=== PATIENT | female | born 1965 | race Caucasian/White ===

== ENCOUNTER 2018-12-18 13:53 | Emergency (ER) | payer MEDICAID, OTHER ==
[~2018-12-18] VITALS: Ht 160 cm; Wt 94.3 kg
[~2018-12-18 13:53] MED LIST: SERT25TA
[2018-12-18 13:56] VITALS: BP_SYST 122
--- NOTE | 2018-12-18 14:57 | NUR ---
Patient to ER bed 08 to gown for evaluation. Side rails up.
[2018-12-18] MEDS ORDERED: MORPHINE 4 MG/ML INJ. SYRINGE IVP ONE (15:15)
[2018-12-18] MEDS ORDERED: ONDANSETRON HCL 4 MG/2 ML VIAL IVP ONE (15:15)
--- NOTE | 2018-12-18 15:40 | NUR ---
Pt brought by self,A&O x4, pt presents to ER with severe headache for the last couple weeks, pt skin pink and warm, pt is ambulatory, no N/V noted at this time, will continue to monitor.
--- NOTE | 2018-12-18 15:43 | NUR ---
[facility] at bedside examining patient
--- NOTE | 2018-12-18 16:20 | NUR ---
Pt resting at this time, VSS , respirations even and unlabored, cap refill <3.
[2018-12-18] MEDS ORDERED: FIORCET PO ONE (16:45)
--- NOTE | 2018-12-18 17:08 | NUR ---
Pt resting at this time, states pain is improving , VSS
[2018-12-18 18:48] VITALS: BP_SYST 122
--- NOTE | 2018-12-18 18:51 | NUR ---
Patient given written and verbal discharge instructions and verbalizes understanding. ER MD discussed with patient the results and treatment provided. Patient in stable condition. ID arm band removed. IV catheter removed intact and dressing applied, no active bleeding. Rx of Fiorinal, Zofran given. Patient educated on pain management and to follow up with PMD. Pain Scale 0/10 . Opportunity for questions provided and answered. Medication side effect fact sheet provided.
== END 2018-12-18 18:48 | disposition home or self-care (01) ==
LOC: SED 13:53
DX: G43.909 Migraine, unspecified, not intractable, without status migrainosus (principal); M79.7 Fibromyalgia; J45.909 Unspecified asthma, uncomplicated
CPT/HCPCS: 96374; 96375; 99283; J2270; J2405

== ENCOUNTER 2018-12-21 11:47 | Emergency (ER) | payer OTHER ==
[~2018-12-21] VITALS: Ht 162.6 cm; Wt 93.4 kg
--- NOTE | 2018-12-21 11:50 | NUR ---
Patient triaged and placed in waiting room. VSS and patient appears in no acute distress at this time. Accompanied by SON, awaiting available bed, and MD notified of need for MSE.
[2018-12-21 11:56] VITALS: BP_SYST 135
--- NOTE | 2018-12-21 13:04 | NUR ---
BROUGHT BACK TO BED #2 AND REPORT GIVEN TO JOELLE
--- NOTE | 2018-12-21 13:12 | NUR ---
Patient presented to ER with severe Headache. Patient [id number], ambulatory to ER, nausea, dizziness, emesis x1. Patient states she was seen in [facility] ER Monday for headache x19 days & was given prescription. Today headache pain more severe 10/10 pain with dizziness and emesis.
--- NOTE | 2018-12-21 13:20 | NUR ---
ER at bedside examining patient.
--- NOTE | 2018-12-21 13:26 | NUR ---
Note undone in EDM - 12/21/18 at 1532 by PARRISEDMARY ANNE Patient given written and verbal discharge instructions and verbalizes understanding. ER discussed with patient the results and treatment provided. Patient in stable condition. ID arm band removed. IV catheter removed intact and dressing applied, no active bleeding. No Rx given. Patient educated on pain management and to follow up with PMD. Pain Scale 2/10 tolerable for patient. Opportunity for questions provided and answered. Patient left with out paperwork.
[2018-12-21] MEDS ORDERED: KETOROLAC TROMETHAMINE 30 MG VIAL IVP ONE (13:30)
[2018-12-21] MEDS ORDERED: METOCLOPRAMIDE HCL 10 MG/2 ML VIAL IVP ONE (13:30)
[2018-12-21] MEDS ORDERED: NACL 0.9% 1,000 ML IV ONE (13:30)
[2018-12-21] MEDS ORDERED: KETOROLAC TROMETHAMINE 60 MG/2 ML VIAL IM ONE (13:30)
--- NOTE | 2018-12-21 13:39 | NUR ---
CONSENT SIGNED AND FAXED TO [facility] FOR CT REPORT.
[2018-12-21 13:44] LABS: BASOPHILS # (AUTO) 0.1 K/uL (0.0-0.2); BASOPHILS % (AUTO) 0.7 % (0.0-2.0); EOSINOPHILS # (AUTO) 0.2 K/uL (0.0-0.4); EOSINOPHILS % (AUTO) 1.8 % (0.0-4.0); HEMATOCRIT 37.1 % (36-48); HEMOGLOBIN 12.4 g/dL (12.0-16.0); LYMPHOCYTES # (AUTO) 2.1 K/uL (1.0-5.5); LYMPHOCYTES % (AUTO) 19.3 % (20.5-51.5); MEAN CORPUSCULAR HEMOGLOBIN 30 pg (27-31); MEAN CORPUSCULAR HGB CONC 33 % (32-36); MEAN CORPUSCULAR VOLUME 90 fL (79.0-98.0); MONOCYTES # (AUTO) 0.6 K/uL (0.0-1.0); MONOCYTES % (AUTO) 5.5 % (1.7-9.3); NEUTROPHILS # (AUTO) 7.9 K/uL (1.8-7.7); NEUTROPHILS % (AUTO) 72.7 % (40.0-70.0); PLATELET COUNT (AUTO) 390 K/uL (130-430); RED BLOOD CELL COUNT(AUTO) 4.11 MIL/uL (4.2-6.2); WHITE BLOOD COUNT (AUTO) 10.9 K/uL (4.8-10.8)
[2018-12-21 13:55] LABS: CALCIUM 8.7 mg/dL (8.4-11.0); CREATININE 0.92 mg/dL (0.55-1.30); POTASSIUM 3.5 mmol/L (3.5-5.1)
[2018-12-21 13:58] LABS: ALBUMIN 3.3 g/dL (3.4-4.8); C-REACTIVE PROTEIN QUANT 3.6 mg/dL (0-0.5); TOTAL BILIRUBIN 0.4 mg/dL (0.0-1.0)
[2018-12-21 14:25] LABS: ERYTHROCYTE SEDIMENTATION RATE 34 MM/HR (0-20)
[2018-12-21] MEDS ORDERED: METOCLOPRAMIDE HCL 10 MG/2 ML VIAL ONE (14:46)
[2018-12-21 15:26] VITALS: BP_SYST 135
--- NOTE | 2018-12-21 15:26 | NUR ---
Patient given written and verbal discharge instructions and verbalizes understanding. ER MD discussed with patient the results and treatment provided. Patient in stable condition. ID arm band removed. IV catheter removed intact and dressing applied, no active bleeding. No Rx given. Patient educated on pain management and to follow up with PMD. Pain Scale 2/10 tolerable for patient. Opportunity for questions provided and answered. Patient left with out paperwork.
== END 2018-12-21 15:26 | disposition home or self-care (01) ==
LOC: SED 11:47
DX: R51 Headache (principal); J45.909 Unspecified asthma, uncomplicated
CPT/HCPCS: 36415; 80053; 81025; 85025; 85651; 86140; 96361; 96374; 96375; 99283; J1885; J2765; J7030

== ENCOUNTER 2019-01-11 16:54 | Emergency (ER) | payer OTHER ==
[~2019-01-11] VITALS: Ht 162.6 cm; Wt 91.2 kg
[2019-01-11 17:01] VITALS: BP_SYST 123
--- NOTE | 2019-01-11 17:07 | NUR ---
Patient to ER bed 7 to gown for evaluation. Side rails up.
--- NOTE | 2019-01-11 17:15 | NUR ---
Pt arrives with c/o BLE edema x 3 days. Pt also reports mild SOB with epigastric pain 4/10. No other c/o at the moment.
--- NOTE | 2019-01-11 17:35 | NUR ---
ER at bedside examining patient.
--- NOTE | 2019-01-11 17:40 | NUR ---
Pt is having a CXR done at the bedside.
--- NOTE | 2019-01-11 18:10 | NUR ---
pt is resting comfortably no c/o at the moment.
[2019-01-11 18:12] LABS: BASOPHILS # (AUTO) 0.1 K/uL (0.0-0.2); BASOPHILS % (AUTO) 1.2 % (0.0-2.0); EOSINOPHILS # (AUTO) 0.3 K/uL (0.0-0.4); EOSINOPHILS % (AUTO) 3.3 % (0.0-4.0); HEMATOCRIT 35.3 % (36-48); HEMOGLOBIN 11.8 g/dL (12.0-16.0); LYMPHOCYTES # (AUTO) 2.5 K/uL (1.0-5.5); LYMPHOCYTES % (AUTO) 27.2 % (20.5-51.5); MEAN CORPUSCULAR HEMOGLOBIN 30 pg (27-31); MEAN CORPUSCULAR HGB CONC 34 % (32-36); MEAN CORPUSCULAR VOLUME 90 fL (79.0-98.0); MONOCYTES # (AUTO) 0.6 K/uL (0.0-1.0); MONOCYTES % (AUTO) 6.8 % (1.7-9.3); NEUTROPHILS # (AUTO) 5.6 K/uL (1.8-7.7); NEUTROPHILS % (AUTO) 61.5 % (40.0-70.0); PLATELET COUNT (AUTO) 381 K/uL (130-430); RED BLOOD CELL COUNT(AUTO) 3.91 MIL/uL (4.2-6.2); RED CELL DISTRIBUTION WIDTH 14.2 % (9.0-15.0); WHITE BLOOD COUNT (AUTO) 9.1 K/uL (4.8-10.8)
[2019-01-11 18:17] LABS: CALCIUM 8.7 mg/dL (8.4-11.0); CREATININE 0.74 mg/dL (0.55-1.30); POTASSIUM 3.7 mmol/L (3.5-5.1)
[2019-01-11 18:22] LABS: ALBUMIN 3.2 g/dL (3.4-4.8); TOTAL BILIRUBIN 0.4 mg/dL (0.0-1.0)
--- NOTE | 2019-01-11 19:01 | NUR ---
Patient given written and verbal discharge instructions and verbalizes understanding. ER MD discussed with patient the results and treatment provided. Patient in stable condition. ID arm band removed. Patient educated on pain management and to follow up with PMD. Pain Scale 0/10 .Opportunity for questions provided and answered. Medication side effect fact sheet provided.
[2019-01-11 19:03] VITALS: BP_SYST 123
== END 2019-01-11 19:01 | disposition home or self-care (01) ==
LOC: SED 16:54
DX: I89.0 Lymphedema, not elsewhere classified (principal); J45.909 Unspecified asthma, uncomplicated; Z90.49 Acquired absence of other specified parts of digestive tract; Z88.8 Allergy status to other drugs, medicaments and biological substances
CPT/HCPCS: 36415; 71045; 80053; 83880; 84484; 85025; 93005; 99284